=== PATIENT | male | born 1955 | race Caucasian/White ===

== ENCOUNTER → 2024-08-03 | Outpatient (CLI) | payer OTHER, MEDICAID, SELFPAY ==
[2024-08-03 13:50] LABS: Basophils # (Auto) 0.1 Thou/mm3 (0.0-0.2); Basophils % (Auto) 1 % (0-2.5); Eosinophils # (Auto) 0.2 Thou/mm3 (0.0-0.5); Eosinophils % (Auto) 3 % (0-10); Hematocrit 42.5 % (41.0-53.0); Hemoglobin 13.2 g/dL (13.5-16.0); Immature Granulocytes % (Auto) 0 % (0-0); Immature Granulocytes Auto 0.02 Thou/mm3 (0.00-0.00); Lymphocytes % (Auto) 26 % (10-50); Mean Corpuscular HGB Conc 31.1 g/dl (31.0-37.0); Mean Corpuscular Volume 90 fL (80-100); Monocytes # (Auto) 0.5 Thou/mm3 (0.0-0.8); Monocytes % (Auto) 6 % (0-12); Neutrophils # (Auto) 4.8 Thou/mm3 (1.8-7.7); Neutrophils % (Auto) 64 % (37-80); Nucleated Red Blood Cell % 0 /100 WBC (0); Platelet Count 210 Thou/mm3 (140-440); RDW Standard Deviation 46.4 fL (35.1-43.9); Red Blood Count 4.71 Miln/mm3 (4.50-5.90); White Blood Count 7.6 Thou/mm3 (3.8-10.6)
[2024-08-03 14:08] LABS: Glucose Estimated Average 117 mg/dL (80-131); Hemoglobin A1C 5.7 % Hgb (4.8-6.0)
[2024-08-03 14:11] LABS: Albumin, Serum 4.4 gm/dL (3.4-4.8); Anion Gap 5 (7-16); BUN/Creatinine Ratio 18 Ratio (12-20); Blood Urea Nitrogen 23 mg/dL (9-23); Calcium 9.7 mg/dL (8.3-10.6); Calcium (Corrected) 9.7 mg/dL (8.5-10.1); Carbon Dioxide 28.3 mMol/L (20.0-31.0); Chloride 110 mMol/L (98-107); Creatinine (Component) 1.3 mg/dL (0.6-1.3); Glucose 112 mg/dL (74-106); Osmolality,Calculated 289 (275-295); Phosphorous 3.2 mg/dL (2.4-5.1); Potassium 4.4 mMol/L (3.4-5.1); Sodium 143 mMol/L (136-145); eGFR 59 See Note
== END | disposition home or self-care (01) ==
LOC: COPL 12:32
PROVIDERS: PCP Internal Medicine; Referring Provider Internal Medicine; Visit Provider Internal Medicine
DX: N18.30 Chronic kidney disease, stage 3 unspecified (principal)
CPT/HCPCS: 36415; 80069; 83036; 85025

== ENCOUNTER → 2024-10-26 | Outpatient (CLI) | payer OTHER, MEDICAID, SELFPAY ==
--- NOTE | 2024-10-26 12:20 | XR_ITS ---
Examination: Abdomen AP single view Technique: AP portable supine abdomen, single view Exam date and time: October 26, 2024 1333 hours INDICATIONS: Abdominal distention beginning 2 weeks ago. FINDINGS: Abundant stool throughout the colon Air distended small bowel loops in the midabdomen No free air IMPRESSION: Air distended small bowel loops in the midabdomen, consider small bowel ileus Early small bowel obstruction not excluded, clinical correlation advised
[2024-10-26 13:09] LABS: Collection Type, Urine Clean Catch
[2024-10-26 13:30] LABS: Basophils % (Auto) 1 % (0-2.5); Eosinophils # (Auto) 0.2 Thou/mm3 (0.0-0.5); Eosinophils % (Auto) 3 % (0-10); Hematocrit 43.9 % (41.0-53.0); Hemoglobin 13.5 g/dL (13.5-16.0); Immature Granulocytes % (Auto) 0 % (0-0); Immature Granulocytes Auto 0.03 Thou/mm3 (0.00-0.00); Lymphocytes # (Auto) 1.9 Thou/mm3 (1.0-4.8); Lymphocytes % (Auto) 27 % (10-50); Mean Corpuscular HGB Conc 30.8 g/dl (31.0-37.0); Mean Corpuscular Hemoglobin 28.1 pg (25.0-35.0); Mean Corpuscular Volume 91 fL (80-100); Monocytes # (Auto) 0.5 Thou/mm3 (0.0-0.8); Monocytes % (Auto) 7 % (0-12); Neutrophils # (Auto) 4.4 Thou/mm3 (1.8-7.7); Neutrophils % (Auto) 63 % (37-80); Nucleated Red Blood Cell % 0 /100 WBC (0); Platelet Count 164 Thou/mm3 (140-440); RDW Standard Deviation 51.9 fL (35.1-43.9); Red Blood Count 4.81 Miln/mm3 (4.50-5.90)
[2024-10-26 13:42] LABS: Bilirubin,Urine Negative (Negative); Blood,Urine Negative (Negative); Clarity,Urine Clear (Clear/Hazy); Color,Urine Lt-Yellow (Lt Yel-Yel); Glucose, Urine Negative (Negative); Ketones,Urine Negative (Negative); Leukocyte Esterase,Urine Negative (Negative); Nitrite,Urine Negative (Negative); Protein,Urine Negative (Neg - Trace); RBC,Urine 1 /hpf (0-3); Specific Gravity,Urine 1.008 (1.001-1.035); Squamous Epithelial Cell,Urine < 1 /hpf (0-5); Urobilinogen,Urine Negative mg/dL (0.0-1.0); WBC,Urine 1 /hpf (0-5)
[2024-10-26 14:00] LABS: Alanine Aminotransferase 10 U/L (10-49); Albumin, Serum 4.4 gm/dL (3.4-4.8); Albumin/Globulin Ratio 2.4 (1.2-2.2); Alkaline Phosphatase 37 U/L (46-116); Amylase 132 U/L (30-118); Anion Gap 6 (7-16); Aspartate Amino Transferase 25 U/L (0-34); BUN/Creatinine Ratio 17 Ratio (12-20); Bilirubin,Total 0.9 mg/dL (0.3-1.2); Blood Urea Nitrogen 22 mg/dL (9-23); Calcium 10.4 mg/dL (8.3-10.6); Calcium (Corrected) 10.4 mg/dL (8.5-10.1); Carbon Dioxide 30.3 mMol/L (20.0-31.0); Chloride 106 mMol/L (98-107); Creatinine (Component) 1.3 mg/dL (0.6-1.3); Globulin 1.8 gm/dL (2.3-3.5); Glucose 106 mg/dL (74-106); Lipase 49 U/L (12-53); Osmolality,Calculated 286 (275-295); Potassium 4.8 mMol/L (3.4-5.1); Sodium 142 mMol/L (136-145); Total Protein 6.2 gm/dL (5.7-8.2); eGFR 59 See Note
== END | disposition home or self-care (01) ==
LOC: CDIM 12:01
PROVIDERS: PCP Internal Medicine; Referring Provider Specialist; Visit Provider Specialist
DX: R10.13 Epigastric pain (principal); R10.31 Right lower quadrant pain; R10.32 Left lower quadrant pain; R14.0 Abdominal distension (gaseous)
CPT/HCPCS: 36415; 74018; 80053; 81001; 82150; 83690; 85025

== ENCOUNTER → 2024-11-10 | Outpatient (CLI) | payer OTHER, MEDICAID, SELFPAY ==
--- NOTE | 2024-11-10 10:30 | XR_ITS ---
Examination: Abdomen sonogram, complete Date and time of exam: November 10, 2024 1053 hrs. Indications: Epigastric pain nausea vomiting diarrhea beginning 5 months ago. Technique: Multiple real-time grayscale transabdominal sonographic images of the abdomen have been obtained. Findings: Gallbladder sludge Gallbladder wall 0.2 cm Common bile duct 0.2 cm Pancreatic head 2.6 cm Aorta not enlarged Liver 14.2 cm irregular contour fatty infiltration Normal hepatopedal portal venous flow Patent IVC Right kidney 13.3 cm renal cortex 1.7 cm 12 mm midpole cyst Left kidney 11.7 cm renal cortex 1.6 cm 8mm midpole cyst Moderate bilateral renal parenchymal scar formation Spleen 11.5 cm Impression: Gallbladder sludge, negative for cholelithiasis, negative for cholecystitis Primary hepatocellular disease fatty liver Moderate bilateral renal parenchymal scar formation
== END | disposition home or self-care (01) ==
LOC: CDIM 10:38
PROVIDERS: PCP Internal Medicine; Referring Provider Specialist; Visit Provider Specialist
DX: K76.0 Fatty (change of) liver, not elsewhere classified (principal); N28.89 Other specified disorders of kidney and ureter
CPT/HCPCS: 76700

== ENCOUNTER 2024-11-22 09:10 | Day surgery (SDC) | payer OTHER, MEDICAID, SELFPAY ==
[2024-11-22] VITALS (11 sets, daily range): BP systolic 118–149; BP diastolic 66–80; PULSE 60–65; RESP 13–22; TEMP 36.4; O2SAT 91–96; BMI 29.0
[2024-11-22] MEDS: SODIUM CHLORIDE 0.9% 500 ML 500 ML 20 ML IV (11:44)
[2024-11-22] MEDS: fentaNYL CIT INJ 50 mCg/ML AMP 2ML (ASD USE ONLY) IV (11:50)
[2024-11-22] MEDS: DiphenhydrAMINE INJ 50 MG/ML VIAL 25 MG IV (11:50)
[2024-11-22] MEDS: ONDANSETRON INJ 2 MG/ML INJ 2 ML 4 MG IV (11:58)
[2024-11-22] MEDS: MIDAZOLAM INJ 1 MG/ML VIAL 2 ML (ASD USE ONLY) 2 MG IV (11:58)
== END 2024-11-22 13:05 | disposition home or self-care (01) ==
PROVIDERS: PCP Internal Medicine; Referring Provider Specialist; Visit Provider Specialist
PROC: (CPT 43239; principal; 2024-11-22 12:00)
DX: K29.60 Other gastritis without bleeding (principal)
CPT/HCPCS: 43239; A4649; J1200; J2250; J2405; J3010; J7040

== ENCOUNTER → 2025-01-05 | Outpatient (CLI) | payer OTHER, MEDICAID, SELFPAY ==
--- NOTE | 2025-01-05 15:16 | EKG_ITS ---
[facility] Test Date: 2025-01-05 Pat Name: CULLEN FELDMAN Department: Room: - Gender: Male [employer]: SEAN : 1955 Requested By: Karen Dyson Order Number: [id number] Reading MD: Karen Dyson Measurements Intervals [place] Rate: 60 P: -16 W[place]: 139 QRS: -87 QRSD: 132 T: 78 QT: 348 QTc: 350 Interpretive Statements SINUS RHYTHM WITH OCCASIONAL VENTRICULAR PREMATURE COMPLEXES INDETERMINATE AXIS RIGHT BUNDLE BRANCH BLOCK [120+ ms QRS DURATION, UPRIGHT V1, 40+ ms S IN I/aVL/V4/V5/V6] ST DEVIATION AND MARKED T-WAVE ABNORMALITY, CONSIDER ANTEROLATERAL ISCHEMIA [-0.5+ mV T WAVE IN I/aVL/V3-V6] Compared to ECG 12/24/2023 14:36:07 Ventricular premature complex(es) now present Indeterminate axis now present T-wave abnormality now present Possible ischemia now present Right-axis deviation no longer present /store/S0/[id number]/ecg/[id number].pdf
[2025-01-05 16:04] LABS: Collection Type, Urine Clean Catch
[2025-01-05 16:59] LABS: Basophils % (Auto) 1 % (0-2.5); Eosinophils # (Auto) 0.2 Thou/mm3 (0.0-0.5); Eosinophils % (Auto) 3 % (0-10); Hematocrit 44.1 % (41.0-53.0); Hemoglobin 14.2 g/dL (13.5-16.0); Immature Granulocytes % (Auto) 0 % (0-0); Immature Granulocytes Auto 0.01 Thou/mm3 (0.00-0.00); Lymphocytes % (Auto) 40 % (10-50); Mean Corpuscular HGB Conc 32.2 g/dl (31.0-37.0); Mean Corpuscular Hemoglobin 29.8 pg (25.0-35.0); Mean Corpuscular Volume 93 fL (80-100); Monocytes # (Auto) 0.6 Thou/mm3 (0.0-0.8); Monocytes % (Auto) 8 % (0-12); Neutrophils # (Auto) 3.6 Thou/mm3 (1.8-7.7); Neutrophils % (Auto) 49 % (37-80); Nucleated Red Blood Cell % 0 /100 WBC (0); Platelet Count 215 Thou/mm3 (140-440); RDW Standard Deviation 46.5 fL (35.1-43.9); Red Blood Count 4.77 Miln/mm3 (4.50-5.90); White Blood Count 7.3 Thou/mm3 (3.8-10.6)
[2025-01-05 17:09] LABS: Bilirubin,Urine Negative (Negative); Blood,Urine Negative (Negative); Clarity,Urine Clear (Clear/Hazy); Color,Urine Yellow (Lt Yel-Yel); Glucose, Urine Negative (Negative); Ketones,Urine Negative (Negative); Leukocyte Esterase,Urine Negative (Negative); Nitrite,Urine Negative (Negative); Protein,Urine Trace (Neg - Trace); RBC,Urine 2 /hpf (0-3); Specific Gravity,Urine 1.038 (1.001-1.035); Squamous Epithelial Cell,Urine < 1 /hpf (0-5); Urobilinogen,Urine Negative mg/dL (0.0-1.0); WBC,Urine 3 /hpf (0-5)
[2025-01-05 17:14] LABS: Glucose Estimated Average 100 mg/dL (80-131); Hemoglobin A1C 5.1 % Hgb (4.8-6.0); Vitamin B12 558 pg/mL (211-911); Vitamin D 25 Hydroxy Total 33.2 ng/mL (7.3-40.2)
[2025-01-05 17:25] LABS: Alanine Aminotransferase 7 U/L (10-49); Albumin, Serum 4.4 gm/dL (3.4-4.8); Alkaline Phosphatase 38 U/L (46-116); Anion Gap 7 (7-16); Aspartate Amino Transferase 22 U/L (0-34); BUN/Creatinine Ratio 22 Ratio (12-20); Bilirubin,Direct 0.2 mg/dL (0.0-0.3); Bilirubin,Total 0.6 mg/dL (0.3-1.2); Blood Urea Nitrogen 29 mg/dL (9-23); Calcium 9.6 mg/dL (8.3-10.6); Carbon Dioxide 29.5 mMol/L (20.0-31.0); Chloride 108 mMol/L (98-107); Cholesterol 145 mg/dL (132-200); Creatinine (Component) 1.3 mg/dL (0.6-1.3); Glucose 86 mg/dL (74-106); HDL Cholesterol 48 mg/dL (40-60); LDL Cholesterol,Calculated 58 mg/dL (0-130); Osmolality,Calculated 291 (275-295); Phosphorous 4.3 mg/dL (2.4-5.1); Potassium 4.4 mMol/L (3.4-5.1); Sodium 144 mMol/L (136-145); Thyroid Stimulating Hormone 2.84 uIU/mL (0.55-4.78); Total Protein 6.7 gm/dL (5.7-8.2); Triglycerides 196 mg/dL (30-150); Uric Acid 3.5 mg/dL (3.7-9.2); eGFR 59 See Note
== END | disposition home or self-care (01) ==
LOC: COPL 14:38
PROVIDERS: PCP Internal Medicine; Referring Provider Internal Medicine; Visit Provider Internal Medicine
DX: Z00.00 Encounter for general adult medical examination without abnormal findings (principal); I12.9 Hypertensive chronic kidney disease with stage 1 through stage 4 chronic kidney disease, or unspecified chronic kidney disease; N18.30 Chronic kidney disease, stage 3 unspecified
CPT/HCPCS: 36415; 80048; 80061; 80076; 81001; 82306; 82607; 83036; 84100; 84443; 84550; 85025; 93005